=== PATIENT | female | born 2005 | race Two or more races ===

== ENCOUNTER → 2024-05-08 | Outpatient (CLI) | payer BC, SELFPAY ==
[2024-05-08 13:57] LABS: Urea Breath Test Negative (Negative)
== END | disposition home or self-care (01) ==
LOC: COPL 11:25
PROVIDERS: PCP Family Medicine; Referring Provider Nurse Practitioner Family; Visit Provider Nurse Practitioner Family
DX: R14.1 Gas pain (principal)
CPT/HCPCS: 83013; 83014

== ENCOUNTER → 2024-06-28 | Outpatient (CLI) | payer BC, SELFPAY ==
--- NOTE | 2024-06-28 12:45 | XR_ITS ---
Examination: Pelvic ultrasound, transabdominal, complete Technique: Transabdominal ultrasound of the pelvis performed using grayscale imaging Date and time of exam: June 28, 2024 12:47 PM INDICATIONS: Uterine and vaginal bleeding irregular heavy menses 5 years FINDINGS: Uterus 6.4 cm endometrial stripe 0.6 cm No uterine mass or intrauterine gestation Right ovary 4.3 cm arterial flow small follicles Left ovary 3.7 cm arterial flow IMPRESSION: Negative study
[2024-06-28 13:58] LABS: Thyroid Stimulating Hormone 3.01 uIU/mL (0.55-4.78)
[2024-07-03 07:04] LABS: DHEA Sulfate* 259 mcg/dL (51-321)
== END | disposition home or self-care (01) ==
PROVIDERS: PCP Nurse Practitioner Family; Referring Provider Obstetrics & Gynecology; Visit Provider Obstetrics & Gynecology
DX: N93.9 Abnormal uterine and vaginal bleeding, unspecified (principal)
CPT/HCPCS: 36415; 76856; 82627; 84443